=== PATIENT | female | born 1965 | race Caucasian/White ===

== ENCOUNTER 2022-11-24 18:40 | Inpatient (IN) | payer BC, MEDICARE ==
[~2022-11-24] VITALS: Ht 170.2 cm; Wt 65.9 kg
[2022-11-25 03:34] LABS: RED CELL DISTRIBUTION WIDTH 12.9 % (11.5-14.5)
[2022-11-25 03:36] LABS: BASOPHILS % (AUTO) 0.9 % (0-1); EOSINOPHILS % (AUTO) 0 % (0-6); HEMATOCRIT 39.3 % (35.0-45.0); HEMOGLOBIN 13.3 g/dl (12.0-16.0); LYMPHOCYTES # (AUTO) 0.9 X10'3 (1.1-4.8); LYMPHOCYTES % (AUTO) 17.5 % (21-51); MEAN CORPUSCULAR HEMOGLOBIN 27.7 PG (27.0-31.0); MEAN CORPUSCULAR HGB CONC 33.8 g/dL (33.0-36.5); MEAN PLATELET VOLUME 7.8 FL (7.4-10.4); MONOCYTES # (AUTO) 0.7 X10'3 (0-0.9); MONOCYTES % (AUTO) 12.4 % (2-12); NEUTROPHILS # (AUTO) 3.7 X10'3 (1.8-7.7); NEUTROPHILS % (AUTO) 69.2 % (42-75); PLATELET COUNT 276 X10'3 (140-440); RED BLOOD COUNT 4.79 X10'6 (4.20-5.60); WHITE BLOOD COUNT 5.4 X10'3 (4.5-11.0)
[2022-11-25 03:41] LABS: COLOR,URINE YELLOW (Yellow); GLUCOSE, URINE NEGATIVE (Neg); KETONES,URINE >=80 mg/dl (Neg); LEUKOCYTE ESTERASE ,URINE NEGATIVE (Neg); NITRITES, URINE NEGATIVE (Neg); OCCULT BLOOD,URINE NEGATIVE (Neg); PROTEIN,URINE TRACE mg/dl (Neg)
[2022-11-25 03:43] LABS: UA COLLECTION TYPE URINAL
[2022-11-25 03:46] LABS: ALANINE AMINOTRANSFERASE 13 U/L (12-78); ALBUMIN 2.9 G/DL (3.4-5.0); ALBUMIN/GLOBULIN RATIO 0.7 (1.1-1.5); ALKALINE PHOSPHATASE 93 IU/L (46-116); ANION GAP 14 (8-16); BILIRUBIN,TOTAL 0.6 MG/DL (0.1-1.0); BLOOD UREA NITROGEN 16 MG/DL (7-18); BUN/CREATININE RATIO 30.8 (10.0-20.0); CALCIUM 8.8 MG/DL (8.5-10.1); CHLORIDE 99 MMOL/L (99-107); CREATININE 0.52 MG/DL (0.40-0.90); GLUCOSE 81 MG/DL (70-104); SODIUM 135 MMOL/L (135-145); TOTAL CARBON DIOXIDE 22.2 MMOL/L (24-32); TOTAL PROTEIN 7.2 G/DL (6.4-8.2); eGFR > 90 ML/MIN
[2022-11-25] MEDS ORDERED: normal saline 1000ml 1,000 ML IV ONE ×2 (03:50)
[2022-11-25 03:52] LABS: BACTERIA,URINE FEW /HPF (Neg); RBC,URINE 0-2 /HPF (0-2)
[2022-11-25 03:53] LABS: CLARITY,URINE SLIGHTLY CLOUDY (Clear); MUCUS STRANDS FEW /LPF (Neg); SQUAMOUS EPITHELIAL CELL,UR MANY /LPF (FEW); TRANSITIONAL EPI CELLS,URINE FEW /HPF
[2022-11-25 04:00] LABS: URINE AMPHETAMINE SCREEN NEGATIVE (Neg); URINE BARBITUATE SCREEN NEGATIVE (Neg); URINE BENZODIAZEPINES SCREEN NEGATIVE (Neg); URINE CANNABINOID SCREEN NEGATIVE (Neg); URINE COCAINE SCREEN NEGATIVE (Neg); URINE METHADONE SCREEN NEGATIVE (Neg); URINE OPIATE SCREEN NEGATIVE (Neg); URINE PHENCYCLIDINE SCREEN NEGATIVE (Neg)
[2022-11-25 04:00] LABS: ASPARTATE AMINO TRANSFERASE 19 U/L (10-37); POTASSIUM 4.1 MMOL/L (3.5-5.1)
[2022-11-25] MEDS ORDERED: azithromycin/NS 500mg/250ml 250 ML IV ONE (04:50)
[2022-11-25] MEDS ORDERED: CefTRIAXone/D5W-Rocephin 1gm 50 ML IV ONE (04:50)
[2022-11-25] MEDS ORDERED: baclofen 10mg tablet PO STA (05:09)
[2022-11-25] MEDS ORDERED: magnesium hydroxide 30ml (MOM) UD suspension PO PRN (05:40)
[2022-11-25] MEDS ORDERED: magnesium 4gm in 100ml NS 100 ML IV PRN (05:40)
[2022-11-25] MEDS ORDERED: potassium Cl 20 mEq SR tablet PO PRN (05:40)
[2022-11-25] MEDS ORDERED: mag hydrox/Alum hydrox/simeth 30ml oral suspension PO PRN (05:40)
[2022-11-25] MEDS ORDERED: potassium Cl 40MEQ/1/2NS 520ml 520 ML IV PRN (05:40)
[2022-11-25] MEDS ORDERED: ondansetron/PF 4mg/2ml inj IV PRN (05:40)
[2022-11-25] MEDS ORDERED: magnesium Cl slow-release 64mg tablet PO PRN (05:40)
[2022-11-25] MEDS ORDERED: magnesium 2GM in 50ml NS 50 ML IV PRN (05:40)
--- NOTE | 2022-11-25 07:00 | NUR ---
REPOSITIONED PT ONTO HER RIGHT SIDE
[2022-11-25] MEDS: K and/or MAG REPLACEMENT MC SCH ×2 (08:00→19:59)
--- NOTE | 2022-11-25 08:19 | NUR ---
ASSISTED PT ONTO A BED AGUILAR
[2022-11-25] MEDS: normal saline 1000ml 1,000 ML IV SCH ×2 (08:20→17:52)
[2022-11-25] MEDS: docusate sod 100mg capsule PO SCH ×2 (08:20→20:00)
[2022-11-25] MEDS: heparin, porcine 5000 units/ml vial SQ SCH ×2 (08:21→20:10)
[2022-11-25] MEDS: azithromycin/NS 500mg/250ml 250 ML IV SCH (10:30)
--- NOTE | 2022-11-25 10:37 | NUR ---
PT REPOSITIONED ONTO HER BACK
[2022-11-25] MEDS ORDERED: DALF10TA3 PO (12:53)
[2022-11-25] MEDS ORDERED: TIZA-189 PO (12:53)
[2022-11-25] MEDS ORDERED: IPRA3AMP31 NEB (12:53)
[2022-11-25] MEDS ORDERED: BACL20TA PO (12:53)
[2022-11-25] MEDS ORDERED: [UNRECOGNIZED DRUG - CODE] PO (12:53)
--- NOTE | 2022-11-25 16:12 | NUR ---
Patient in room ED 15. I have received report from Harshal ARMENTA from ER and had the opportunity to ask questions and assume patient care.
[2022-11-25 18:00] VITALS: BP 135/61
--- NOTE | 2022-11-25 18:07 | NUR ---
Problems reprioritized. Patient report given, questions answered & plan of care reviewed with Nadia ARMENTA.
--- NOTE | 2022-11-25 18:20 | NUR ---
Patient in room ORTHO 4023. I have received report from KATHI Lawton and had the opportunity to ask questions and assume patient care.
[2022-11-25] MEDS: acetaminophen 325mg tablet PO PRN (20:15)
[2022-11-25] MEDS: baclofen 10mg tablet PO PRN (20:19)
[2022-11-26 02:00] VITALS: BP 108/52
[2022-11-26] MEDS: normal saline 1000ml 1,000 ML IV SCH ×2 (03:11→15:42)
[2022-11-26] MEDS: CefTRIAXone/D5W-Rocephin 1gm 50 ML IV SCH (05:11)
[2022-11-26 06:00] VITALS: BP 152/71
--- NOTE | 2022-11-26 06:30 | NUR ---
Patient in room ORTHO 4023. I have received report from Nadia ARMENTA and had the opportunity to ask questions and assume patient care.
--- NOTE | 2022-11-26 06:33 | NUR ---
Problems reprioritized. Patient report given, questions answered & plan of care reviewed with DEMETRIUS Lawton.
[2022-11-26 07:52] LABS: ALANINE AMINOTRANSFERASE 11 U/L (12-78); ALBUMIN 2.2 G/DL (3.4-5.0); ALBUMIN/GLOBULIN RATIO 0.6 (1.1-1.5); ALKALINE PHOSPHATASE 70 IU/L (46-116); ANION GAP 8 (8-16); ASPARTATE AMINO TRANSFERASE 19 U/L (10-37); BILIRUBIN,TOTAL 0.2 MG/DL (0.1-1.0); BLOOD UREA NITROGEN 8 MG/DL (7-18); BUN/CREATININE RATIO 12.9 (10.0-20.0); CALCIUM 7.8 MG/DL (8.5-10.1); CHLORIDE 106 MMOL/L (99-107); CREATININE 0.62 MG/DL (0.40-0.90); GLUCOSE 109 MG/DL (70-104); POTASSIUM 3.5 MMOL/L (3.5-5.1); SODIUM 139 MMOL/L (135-145); TOTAL CARBON DIOXIDE 24.8 MMOL/L (24-32); TOTAL PROTEIN 5.9 G/DL (6.4-8.2); eGFR > 90 ML/MIN
[2022-11-26] MEDS: docusate sod 100mg capsule PO SCH ×2 (08:00→20:00)
[2022-11-26] MEDS: K and/or MAG REPLACEMENT MC SCH ×2 (08:00→20:00)
[2022-11-26] MEDS: azithromycin/NS 500mg/250ml 250 ML IV SCH (08:20)
[2022-11-26 09:09] LABS: BASOPHILS % (AUTO) 0.4 % (0-1); EOSINOPHILS % (AUTO) 0.1 % (0-6); HEMATOCRIT 36.4 % (35.0-45.0); HEMOGLOBIN 12.2 g/dl (12.0-16.0); LYMPHOCYTES # (AUTO) 0.8 X10'3 (1.1-4.8); LYMPHOCYTES % (AUTO) 16.2 % (21-51); MEAN CORPUSCULAR HEMOGLOBIN 27.4 PG (27.0-31.0); MEAN CORPUSCULAR HGB CONC 33.6 g/dL (33.0-36.5); MEAN CORPUSCULAR VOLUME 81.7 FL (78-98); MEAN PLATELET VOLUME 8.2 FL (7.4-10.4); MONOCYTES # (AUTO) 0.7 X10'3 (0-0.9); MONOCYTES % (AUTO) 13.7 % (2-12); NEUTROPHILS # (AUTO) 3.5 X10'3 (1.8-7.7); NEUTROPHILS % (AUTO) 69.6 % (42-75); PLATELET COUNT 249 X10'3 (140-440); RED BLOOD COUNT 4.45 X10'6 (4.20-5.60); WHITE BLOOD COUNT 5.1 X10'3 (4.5-11.0)
[2022-11-26] MEDS: baclofen 10mg tablet PO PRN ×2 (09:13→20:15)
[2022-11-26] MEDS: heparin, porcine 5000 units/ml vial SQ SCH ×2 (09:15→20:15)
[2022-11-26 10:00] VITALS: BP 121/58
[2022-11-26] MEDS ORDERED: non-formulary drug (Baclofen 1 TAB) PO SCH (13:00)
[2022-11-26 14:00] VITALS: BP 134/58
--- NOTE | 2022-11-26 15:20 | NUR ---
BURRING MACHINE OPERATOR documentation: I have reviewed and agree with all interventions, assessments performed and documented by Patt Pena LVN.
[2022-11-26] MEDS: acetaminophen 325mg tablet PO PRN (16:55)
[2022-11-26 18:00] VITALS: BP 146/66
--- NOTE | 2022-11-26 18:00 | NUR ---
Patient in room ORTHO 4023. I have received report from KATHI Lawton and had the opportunity to ask questions and assume patient care.
--- NOTE | 2022-11-26 18:02 | NUR ---
Problems reprioritized. Patient report given, questions answered & plan of care reviewed with Nadia ARMENTA.
[2022-11-26] MEDS: ipratropium/albuterol 3ml nebule NEB SCH (19:30)
[2022-11-26] MEDS: DALFAMPRIDINE PO SCH (20:00)
[2022-11-26] MEDS ORDERED: tizanidine 4mg tablet PO SCH (21:00)
[2022-11-26 22:00] VITALS: BP 103/57
[2022-11-27] MEDS: acetaminophen 325mg tablet PO PRN ×2 (00:51→16:58)
[2022-11-27] MEDS: normal saline 1000ml 1,000 ML IV SCH ×3 (00:54→11:53)
[2022-11-27 02:00] VITALS: BP 127/67
[2022-11-27] MEDS: CefTRIAXone/D5W-Rocephin 1gm 50 ML IV SCH (04:58)
[2022-11-27 06:00] VITALS: BP 101/61
--- NOTE | 2022-11-27 06:34 | NUR ---
Problems reprioritized. Patient report given, questions answered & plan of care reviewed with KATHI Pinto.
[2022-11-27 06:56] LABS: ALANINE AMINOTRANSFERASE 12 U/L (12-78); ALBUMIN/GLOBULIN RATIO 0.6 (1.1-1.5); ALKALINE PHOSPHATASE 65 IU/L (46-116); ANION GAP 8 (8-16); ASPARTATE AMINO TRANSFERASE 22 U/L (10-37); BILIRUBIN,TOTAL 0.3 MG/DL (0.1-1.0); BLOOD UREA NITROGEN 5 MG/DL (7-18); BUN/CREATININE RATIO 9.8 (10.0-20.0); CALCIUM 7.7 MG/DL (8.5-10.1); CHLORIDE 109 MMOL/L (99-107); CREATININE 0.51 MG/DL (0.40-0.90); GLUCOSE 98 MG/DL (70-104); POTASSIUM 3.2 MMOL/L (3.5-5.1); SODIUM 144 MMOL/L (135-145); TOTAL CARBON DIOXIDE 26.6 MMOL/L (24-32); TOTAL PROTEIN 5.4 G/DL (6.4-8.2); eGFR > 90 ML/MIN
[2022-11-27 07:02] LABS: BASOPHILS % (AUTO) 0.4 % (0-1); EOSINOPHILS % (AUTO) 0.1 % (0-6); HEMATOCRIT 32.4 % (35.0-45.0); HEMOGLOBIN 10.6 g/dl (12.0-16.0); LYMPHOCYTES # (AUTO) 0.9 X10'3 (1.1-4.8); LYMPHOCYTES % (AUTO) 19.3 % (21-51); MEAN CORPUSCULAR HEMOGLOBIN 26.8 PG (27.0-31.0); MEAN CORPUSCULAR HGB CONC 32.8 g/dL (33.0-36.5); MEAN CORPUSCULAR VOLUME 81.8 FL (78-98); MEAN PLATELET VOLUME 8.1 FL (7.4-10.4); MONOCYTES # (AUTO) 0.5 X10'3 (0-0.9); MONOCYTES % (AUTO) 11.9 % (2-12); NEUTROPHILS % (AUTO) 68.3 % (42-75); PLATELET COUNT 245 X10'3 (140-440); RED BLOOD COUNT 3.96 X10'6 (4.20-5.60); RED CELL DISTRIBUTION WIDTH 12.8 % (11.5-14.5); WHITE BLOOD COUNT 4.4 X10'3 (4.5-11.0)
[2022-11-27] MEDS: azithromycin/NS 500mg/250ml 250 ML IV SCH (07:42)
[2022-11-27] MEDS: heparin, porcine 5000 units/ml vial SQ SCH (07:43)
[2022-11-27] MEDS: docusate sod 100mg capsule PO SCH ×4 (07:43→20:00)
[2022-11-27] MEDS: DALFAMPRIDINE PO SCH ×2 (07:44→20:00)
[2022-11-27] MEDS: baclofen 10mg tablet PO PRN ×2 (07:52→20:45)
[2022-11-27] MEDS: K and/or MAG REPLACEMENT MC SCH ×2 (08:00→20:00)
[2022-11-27] MEDS: ipratropium/albuterol 3ml nebule NEB SCH ×2 (08:28→20:01)
[2022-11-27 10:00] VITALS: BP 122/70
[2022-11-27] MEDS: potassium Cl 20 mEq SR tablet PO PRN ×3 (11:05→21:29)
[2022-11-27 14:05] LABS: D-DIMER 1.28 MG/L FEU (0-0.50)
[2022-11-27] MEDS ORDERED: iohexol 300mg/ml 100ml inj. ONE (14:26)
--- NOTE | 2022-11-27 14:54 | NUR ---
Received page from RN stating pt would like to talk to RD for food preferences. Noted pt originally on a heart healthy diet and eating poorly, documented with average 23% PO intake since admit. Pt seen at bedside with SO present. Food preferences were obtained and d/w dietary, see below. Pt states SO doordashed food for lunch and pt also received an additional lunch tray d/t not liking initial meal. Pt provided with RD contact information and encouraged to reach out if needed. Will continue to follow. Recommendations: 1) Continue regular diet 2) [place] food preferences: cottage cheese with fruit WB; no hot cereal, hot tea, coffee, eggs to eat, seafood, green beans, or melons; pt prefers whole milk with cereal, juice, iced tea with sugar, lemonade Addendum: 11/27/22 at [address] Amended: Links added.
[2022-11-27] MEDS: atenolol 25mg tablet PO SCH (17:48)
[2022-11-27 18:00] VITALS: BP 141/68
[2022-11-27 19:00] VITALS: BP 111/52
--- NOTE | 2022-11-27 19:44 | NUR ---
Notified night re: patient having low blood sugar. stated to drop patient off protocol and continue blood sugar checks to monitor - begin protocol again after 2 consecutive glucose over 160 or 1 over 200. Addendum: 11/27/22 at 2000 by Naomi Bonilla RN please disregard - wrong patient
[2022-11-27] MEDS ORDERED: tizanidine 4mg tablet PO PRN (20:40)
--- NOTE | 2022-11-27 21:11 | NUR ---
repositioned patient and all needs in reach. replaced wick and [place]. Patient refused Colace and Tizanadine. Home meds not available. Only administered Baclofen and Potassium replacement.
[2022-11-27 22:00] VITALS: BP 115/48
[2022-11-28] MEDS: heparin, porcine 5000 units/ml vial SQ SCH ×3 (00:18→16:31)
[2022-11-28] MEDS: normal saline 1000ml 1,000 ML IV SCH (00:20)
--- NOTE | 2022-11-28 01:45 | NUR ---
Student documentation: I have reviewed and agree with all interventions, assessments performed and documented by TRAVIS Bennett student.
[2022-11-28 02:00] VITALS: BP_SYST 119; BP_SYST 137; BP_DIAS 62
[2022-11-28] MEDS: acetaminophen 325mg tablet PO PRN ×2 (02:41→19:38)
[2022-11-28] MEDS: CefTRIAXone/D5W-Rocephin 1gm 50 ML IV SCH (05:10)
[2022-11-28 06:00] VITALS: BP 102/48
[2022-11-28 07:14] LABS: BASOPHILS % (AUTO) 0.3 % (0-1); EOSINOPHILS % (AUTO) 0 % (0-6); HEMATOCRIT 31.8 % (35.0-45.0); HEMOGLOBIN 10.7 g/dl (12.0-16.0); LYMPHOCYTES # (AUTO) 0.9 X10'3 (1.1-4.8); LYMPHOCYTES % (AUTO) 19.9 % (21-51); MEAN CORPUSCULAR HEMOGLOBIN 27.7 PG (27.0-31.0); MEAN CORPUSCULAR HGB CONC 33.6 g/dL (33.0-36.5); MEAN CORPUSCULAR VOLUME 82.4 FL (78-98); MEAN PLATELET VOLUME 7.6 FL (7.4-10.4); MONOCYTES # (AUTO) 0.5 X10'3 (0-0.9); NEUTROPHILS % (AUTO) 67.8 % (42-75); PLATELET COUNT 251 X10'3 (140-440); RED BLOOD COUNT 3.86 X10'6 (4.20-5.60); RED CELL DISTRIBUTION WIDTH 12.9 % (11.5-14.5); WHITE BLOOD COUNT 4.5 X10'3 (4.5-11.0)
[2022-11-28 07:26] LABS: ALANINE AMINOTRANSFERASE 13 U/L (12-78); ALBUMIN 1.9 G/DL (3.4-5.0); ALBUMIN/GLOBULIN RATIO 0.5 (1.1-1.5); ALKALINE PHOSPHATASE 73 IU/L (46-116); ANION GAP 9 (8-16); ASPARTATE AMINO TRANSFERASE 22 U/L (10-37); BILIRUBIN,TOTAL 0.3 MG/DL (0.1-1.0); BLOOD UREA NITROGEN 5 MG/DL (7-18); BUN/CREATININE RATIO 9.8 (10.0-20.0); CALCIUM 8.1 MG/DL (8.5-10.1); CHLORIDE 109 MMOL/L (99-107); CREATININE 0.51 MG/DL (0.40-0.90); GLUCOSE 97 MG/DL (70-104); POTASSIUM 4.1 MMOL/L (3.5-5.1); SODIUM 143 MMOL/L (135-145); TOTAL CARBON DIOXIDE 24.8 MMOL/L (24-32); TOTAL PROTEIN 5.4 G/DL (6.4-8.2); eGFR > 90 ML/MIN
[2022-11-28] MEDS: DALFAMPRIDINE PO SCH ×2 (08:00→19:45)
[2022-11-28] MEDS: K and/or MAG REPLACEMENT MC SCH ×2 (08:00→20:00)
[2022-11-28] MEDS: docusate sod 100mg capsule PO SCH ×2 (08:00→19:36)
[2022-11-28] MEDS: ipratropium/albuterol 3ml nebule NEB SCH ×2 (08:18→20:12)
[2022-11-28 09:39] LABS: C-REACTIVE PROTEIN 10.53 MG/DL (0.0-0.5)
[2022-11-28] MEDS: azithromycin/NS 500mg/250ml 250 ML IV SCH (10:15)
[2022-11-28] MEDS: atenolol 25mg tablet PO SCH (10:23)
[2022-11-28 10:28] VITALS: BP 119/58
[2022-11-28] MEDS ORDERED: iohexol 350MG/ML 100ml bottle IV ONE (10:46)
--- NOTE | 2022-11-28 10:58 | NUR ---
Patient to CT
[2022-11-28] MEDS: baclofen 10mg tablet PO PRN (16:41)
[2022-11-28 18:00] VITALS: BP 134/69
--- NOTE | 2022-11-28 18:06 | NUR ---
Problems reprioritized. Patient report given, questions answered & plan of care reviewed with Naomi Mendenhall RN.
[2022-11-28 22:00] VITALS: BP 97/52
[2022-11-29] MEDS: heparin, porcine 5000 units/ml vial SQ SCH ×3 (00:34→16:52)
--- NOTE | 2022-11-29 00:39 | NUR ---
Student documentation: I have reviewed and agree with all interventions, assessments performed and documented by TRAVIS Bennett student.
[2022-11-29] MEDS: normal saline 1000ml 1,000 ML IV SCH (01:37)
[2022-11-29] MEDS: acetaminophen 325mg tablet PO PRN (02:13)
[2022-11-29 04:14] LABS: BASOPHILS # (AUTO) 0.1 X10'3 (0-0.2); EOSINOPHILS % (AUTO) 0.1 % (0-6); HEMOGLOBIN 10.1 g/dl (12.0-16.0); MEAN PLATELET VOLUME 8.1 FL (7.4-10.4); RED BLOOD COUNT 3.69 X10'6 (4.20-5.60); RED CELL DISTRIBUTION WIDTH 12.7 % (11.5-14.5); WHITE BLOOD COUNT 5.3 X10'3 (4.5-11.0)
[2022-11-29 04:15] LABS: ALANINE AMINOTRANSFERASE 13 U/L (12-78); ALBUMIN 1.9 G/DL (3.4-5.0); ALBUMIN/GLOBULIN RATIO 0.5 (1.1-1.5); ALKALINE PHOSPHATASE 84 IU/L (46-116); ANION GAP 8 (8-16); ASPARTATE AMINO TRANSFERASE 24 U/L (10-37); BASOPHILS % (AUTO) 1.4 % (0-1); BILIRUBIN,TOTAL 0.3 MG/DL (0.1-1.0); BLOOD UREA NITROGEN 6 MG/DL (7-18); CHLORIDE 104 MMOL/L (99-107); GLUCOSE 104 MG/DL (70-104); LYMPHOCYTES # (AUTO) 0.6 X10'3 (1.1-4.8); LYMPHOCYTES % (AUTO) 11.9 % (21-51); MEAN CORPUSCULAR HEMOGLOBIN 27.4 PG (27.0-31.0); MEAN CORPUSCULAR HGB CONC 33.6 g/dL (33.0-36.5); MEAN CORPUSCULAR VOLUME 81.3 FL (78-98); MONOCYTES # (AUTO) 0.6 X10'3 (0-0.9); MONOCYTES % (AUTO) 11.8 % (2-12); NEUTROPHILS # (AUTO) 3.9 X10'3 (1.8-7.7); NEUTROPHILS % (AUTO) 74.8 % (42-75); PLATELET COUNT 257 X10'3 (140-440); POTASSIUM 3.7 MMOL/L (3.5-5.1); SODIUM 137 MMOL/L (135-145); TOTAL CARBON DIOXIDE 24.8 MMOL/L (24-32); TOTAL PROTEIN 5.5 G/DL (6.4-8.2); eGFR > 90 ML/MIN
[2022-11-29] MEDS: CefTRIAXone/D5W-Rocephin 1gm 50 ML IV SCH (05:04)
--- NOTE | 2022-11-29 06:15 | NUR ---
Patient in room ORTHO 4023. I have received report from Naomi Mendenhall and ABEBA and had the opportunity to ask questions and assume patient care.
[2022-11-29 07:02] VITALS: BP 110/42
[2022-11-29] MEDS: K and/or MAG REPLACEMENT MC SCH ×2 (08:00→20:00)
[2022-11-29] MEDS: docusate sod 100mg capsule PO SCH ×2 (08:00→20:00)
[2022-11-29] MEDS: ipratropium/albuterol 3ml nebule NEB SCH ×2 (09:16→20:22)
[2022-11-29] MEDS: azithromycin/NS 500mg/250ml 250 ML IV SCH (09:21)
[2022-11-29] MEDS: atenolol 25mg tablet PO SCH (09:35)
[2022-11-29] MEDS: baclofen 10mg tablet PO PRN (09:36)
[2022-11-29 10:00] VITALS: BP 111/50
[2022-11-29] MEDS ORDERED: furosemide 20 MG/2 ML vial IV ONE ×2 (10:40→11:00)
--- NOTE | 2022-11-29 13:30 | NUR ---
Put patient back to bed, changed wick, changed bed and bed bath given.
[2022-11-29 14:06] LABS: HIV ANTIBODY 1&2 RAPID NON-REACTIVE (Neg)
--- NOTE | 2022-11-29 14:46 | NUR ---
magan from [place], [place] by Dr. Carmona, fed patient Addendum: 11/29/22 at 1446 by Eve Treviño RN Amended: Links added.
[2022-11-29] MEDS: piperacillin/tazo 4.5gm/100ml 100 ML IV SCH (16:52)
--- NOTE | 2022-11-29 17:13 | NUR ---
Patient stated she tested positive MID October, to late October.
--- NOTE | 2022-11-29 17:34 | NUR ---
Bladder scanned patient with 1022mls in will notify
--- NOTE | 2022-11-29 17:38 | NUR ---
PAGER ID: [phone] MESSAGE: [id number] Allie Grant Patients can't pee, I am going to give her next dose of baclofen. Do you want me to straight cath her? 1022ml in bladder Eve [id number]
[2022-11-29 18:00] VITALS: BP 142/67
--- NOTE | 2022-11-29 18:12 | NUR ---
Straight cath result. Addendum: 11/29/22 at 1813 by Eve Treviño RN Amended: Links added.
--- NOTE | 2022-11-29 18:26 | NUR ---
Problems reprioritized. Patient report given, questions answered & plan of care reviewed with REGISTERED VETERINARY TECHNICIAN.
[2022-11-29] MEDS: DALFAMPRIDINE PO SCH (20:00)
[2022-11-29 22:00] VITALS: BP 105/50
[2022-11-30] VITALS (10 sets, daily range): BP systolic 85–126; BP diastolic 41–80
[2022-11-30] MEDS: heparin, porcine 5000 units/ml vial SQ SCH ×4 (00:24→23:45)
[2022-11-30] MEDS: piperacillin/tazo 4.5gm/100ml 100 ML IV SCH ×4 (00:25→23:44)
[2022-11-30] MEDS: baclofen 10mg tablet PO PRN ×2 (00:25→19:58)
[2022-11-30 06:42] LABS: HEMOGLOBIN 11.9 g/dl (12.0-16.0)
[2022-11-30 06:44] LABS: HEMATOCRIT 35.6 % (35.0-45.0); MEAN CORPUSCULAR HEMOGLOBIN 27.5 PG (27.0-31.0); MEAN CORPUSCULAR HGB CONC 33.3 g/dL (33.0-36.5); MEAN CORPUSCULAR VOLUME 82.5 FL (78-98); MEAN PLATELET VOLUME 8.3 FL (7.4-10.4); PLATELET COUNT 265 X10'3 (140-440); RED BLOOD COUNT 4.32 X10'6 (4.20-5.60); RED CELL DISTRIBUTION WIDTH 13.1 % (11.5-14.5)
[2022-11-30 06:57] LABS: ALANINE AMINOTRANSFERASE 19 U/L (12-78); ALBUMIN 1.9 G/DL (3.4-5.0); ALBUMIN/GLOBULIN RATIO 0.4 (1.1-1.5); ALKALINE PHOSPHATASE 92 IU/L (46-116); ANION GAP 9 (8-16); ASPARTATE AMINO TRANSFERASE 33 U/L (10-37); BILIRUBIN,TOTAL 0.5 MG/DL (0.1-1.0); BLOOD UREA NITROGEN 9 MG/DL (7-18); BUN/CREATININE RATIO 18.4 (10.0-20.0); CALCIUM 8.5 MG/DL (8.5-10.1); CHLORIDE 102 MMOL/L (99-107); CREATININE 0.49 MG/DL (0.40-0.90); GLUCOSE 97 MG/DL (70-104); SODIUM 136 MMOL/L (135-145); TOTAL CARBON DIOXIDE 25.2 MMOL/L (24-32); TOTAL PROTEIN 6.3 G/DL (6.4-8.2); eGFR > 90 ML/MIN
[2022-11-30 07:15] LABS: LARGE PLATELETS FEW; PLATELET ESTIMATE NORMAL; TOTAL CELLS COUNTED 100
[2022-11-30] MEDS: atenolol 25mg tablet PO SCH (07:30)
[2022-11-30] MEDS: docusate sod 100mg capsule PO SCH ×2 (07:30→19:58)
[2022-11-30] MEDS: ipratropium/albuterol 3ml nebule NEB SCH ×2 (07:54→15:20)
[2022-11-30] MEDS: K and/or MAG REPLACEMENT MC SCH ×2 (08:00→19:56)
[2022-11-30] MEDS: DALFAMPRIDINE PO SCH ×2 (08:00→19:59)
--- NOTE | 2022-11-30 11:03 | NUR ---
Initial: Pt admit DX bilateral community-acquired PNA, MS, and immunocompromise from MS treatment per EMR. PO fluctuates regular diet ~50% avg recent meals though pt having bring foods from cafe and doordashing food this admit so difficult to assess nutrition intake. Overall likely partially meeting needs w/ current PO documentation; will send lizz VAUGHAN-dietary notified. LBM 11/29 receiving routine colace though refused this AM per EMR. Will continue to follow. Recommendations: 1) Continue regular diet; encourage PO. Pt having food brought from outside sources 2) [place] food preferences: cottage cheese with fruit WB; no hot cereal, hot tea, coffee, eggs to eat, seafood, green beans, or melons; pt prefers whole milk with cereal, juice, iced tea with sugar, lemonade 3) Lizz WS to assist meeting needs 4) Routine bowel care 5) scaled wt this admit; subsequent weekly wt Addendum: 11/30/22 at [address] Amended: Links added.
[2022-11-30] MEDS ORDERED: furosemide 20 MG/2 ML vial IV ONE (11:55)
[2022-11-30 12:20] LABS: IMMUNOGLOBULIN G, QN, SERUM 592 mg/dL (586-1602)
--- NOTE | 2022-11-30 13:30 | NUR ---
PRESSURE ULCER EDUCATION: DEFINITION: A pressure ulcer is an area of skin that breaks down when you stay in one position too long. The constant pressure against the skin reduces the blood flow to that area and the affected tissue dies. CAUSES: "Being bedridden or in a wheelchair "Fragile skin "Having a chronic condition, such as diabetes or vascular disease "Inability to move certain parts of your body without assistance "Older age "Incontinence of urine or stool SYMPTOMS: "A reddened area that DOES NOT turn white when pressed on - this can be the beginning of a pressure ulcer "A blister, deep sore or a crater - these can be advanced pressure ulcers FIRST AID: "Relieve the pressure on this area "Keep the area clean and dry "Call your primary doctor if you see any of the above symptoms "DO NOT massage the area "DO NOT use a donut shaped or ring shaped pillow- these actually interfere with the blood flow and cause complications PREVENTION: "Check for pressure ulcers everyday "Change position at least every two hours to relieve pressure "Use items that help relieve pressure- pillows, sheepskin, foam padding, and powders. "Keep skin clean and dry "Eat healthy well balanced meals "Exercise daily IF YOU SEE ANY OF THESE SYMPTOMS WHILE IN THE HOSPITAL - TELL YOUR NURSE IMMEDIATELY. IF YOU SEE ANY OF THESE SYMPTOMS WHILE AT HOME OR HAVE ANY QUESTIONS OR CONCERNS ABOUT PRESSURE ULCERS - CALL YOUR PRIMARY DOCTOR IMMEDIATELY. Addendum: 11/30/22 at 1330 by Radhika Miles RN Amended: Links added.
[2022-11-30] MEDS: acetaminophen 325mg tablet PO PRN ×2 (14:23→23:56)
[2022-11-30] MEDS: ipratropium/albuterol 3ml nebule NEB PRN (19:58)
[2022-12-01] MEDS: baclofen 10mg tablet PO PRN ×2 (04:49→21:08)
[2022-12-01 06:00] VITALS: BP 110/57
[2022-12-01] MEDS: docusate sod 100mg capsule PO SCH (07:50)
[2022-12-01] MEDS: K and/or MAG REPLACEMENT MC SCH ×2 (08:00→20:00)
[2022-12-01] MEDS: DALFAMPRIDINE PO SCH ×2 (08:00→20:00)
[2022-12-01] MEDS: ipratropium/albuterol 3ml nebule NEB SCH ×2 (08:03→15:33)
[2022-12-01 09:28] LABS: BASOPHILS % (AUTO) 0.3 % (0-1); EOSINOPHILS % (AUTO) 0.1 % (0-6); HEMATOCRIT 38.7 % (35.0-45.0); HEMOGLOBIN 12.9 g/dl (12.0-16.0); LYMPHOCYTES % (AUTO) 15.1 % (21-51); MEAN CORPUSCULAR HEMOGLOBIN 27.4 PG (27.0-31.0); MEAN CORPUSCULAR HGB CONC 33.4 g/dL (33.0-36.5); MEAN CORPUSCULAR VOLUME 82.1 FL (78-98); MEAN PLATELET VOLUME 8.5 FL (7.4-10.4); MONOCYTES # (AUTO) 0.8 X10'3 (0-0.9); MONOCYTES % (AUTO) 12.6 % (2-12); NEUTROPHILS # (AUTO) 4.7 X10'3 (1.8-7.7); NEUTROPHILS % (AUTO) 71.9 % (42-75); PLATELET COUNT 299 X10'3 (140-440); RED BLOOD COUNT 4.71 X10'6 (4.20-5.60); RED CELL DISTRIBUTION WIDTH 13.1 % (11.5-14.5); WHITE BLOOD COUNT 6.6 X10'3 (4.5-11.0)
[2022-12-01 09:39] LABS: ALBUMIN 2.2 G/DL (3.4-5.0); ANION GAP 8 (8-16); BLOOD UREA NITROGEN 11 MG/DL (7-18); BUN/CREATININE RATIO 15.9 (10.0-20.0); CALCIUM 9.2 MG/DL (8.5-10.1); CHLORIDE 98 MMOL/L (99-107); CREATININE 0.69 MG/DL (0.40-0.90); GLUCOSE 126 MG/DL (70-104); POTASSIUM 3.7 MMOL/L (3.5-5.1); SODIUM 136 MMOL/L (135-145); TOTAL CARBON DIOXIDE 29.9 MMOL/L (24-32); eGFR 88 ML/MIN
[2022-12-01 10:00] VITALS: BP 115/48
[2022-12-01] MEDS: atenolol 25mg tablet PO SCH (10:17)
[2022-12-01] MEDS: heparin, porcine 5000 units/ml vial SQ SCH ×2 (10:18→17:34)
[2022-12-01] MEDS: piperacillin/tazo 4.5gm/100ml 100 ML IV SCH ×3 (10:20→17:45)
[2022-12-01] MEDS ORDERED: normal saline 1000ml 1,000 ML IV SCH (10:40)
[2022-12-01] MEDS: ipratropium/albuterol 3ml nebule NEB PRN ×2 (11:58→19:34)
[2022-12-01] MEDS: linezolid 600mg tablet PO SCH ×2 (17:35→20:57)
--- NOTE | 2022-12-01 20:00 | NUR ---
Pt. is awake alert laying on left side with head of bed flat, unable to clear oral secretions.Suctioned as needed invited pt. to learn self suctioning as needed with nicolette. C/o feeling hot, blankets removed cool pack given. Repositioned in bed to right back, water and meds given tolerated well. Checked sacral mepilex dressing no skin breakdown noted. 2200 Report to next shift.
[2022-12-01 21:53] LABS: CRYPTOCOCCUS ANTIGEN, SERUM Negative (Negative)
[2022-12-01 22:00] VITALS: BP 107/48
[2022-12-02] MEDS: heparin, porcine 5000 units/ml vial SQ SCH ×4 (00:02→23:53)
[2022-12-02] MEDS: piperacillin/tazo 4.5gm/100ml 100 ML IV SCH ×4 (00:03→23:53)
[2022-12-02 01:57] VITALS: BP 106/54
[2022-12-02 06:00] VITALS: BP 106/54
--- NOTE | 2022-12-02 06:28 | NUR ---
Patient in room ORTHO 4006. I have received report from kevin ARMENTA and had the opportunity to ask questions and assume patient care.
[2022-12-02] MEDS: ipratropium/albuterol 3ml nebule NEB SCH ×2 (07:44→20:10)
[2022-12-02] MEDS: atenolol 25mg tablet PO SCH (07:44)
[2022-12-02] MEDS: linezolid 600mg tablet PO SCH ×2 (07:45→19:51)
[2022-12-02] MEDS: DALFAMPRIDINE PO SCH ×2 (07:49→20:00)
[2022-12-02] MEDS: K and/or MAG REPLACEMENT MC SCH ×2 (08:00→20:00)
[2022-12-02 09:07] LABS: BASOPHILS % (AUTO) 0.5 % (0-1); EOSINOPHILS % (AUTO) 0.2 % (0-6); HEMATOCRIT 32.9 % (35.0-45.0); HEMOGLOBIN 11.1 g/dl (12.0-16.0); LYMPHOCYTES # (AUTO) 1.2 X10'3 (1.1-4.8); LYMPHOCYTES % (AUTO) 19.9 % (21-51); MEAN CORPUSCULAR HEMOGLOBIN 27.5 PG (27.0-31.0); MEAN CORPUSCULAR HGB CONC 33.8 g/dL (33.0-36.5); MEAN CORPUSCULAR VOLUME 81.3 FL (78-98); MEAN PLATELET VOLUME 8.7 FL (7.4-10.4); MONOCYTES % (AUTO) 16.8 % (2-12); NEUTROPHILS # (AUTO) 3.7 X10'3 (1.8-7.7); NEUTROPHILS % (AUTO) 62.6 % (42-75); PLATELET COUNT 267 X10'3 (140-440); RED BLOOD COUNT 4.05 X10'6 (4.20-5.60); RED CELL DISTRIBUTION WIDTH 13.1 % (11.5-14.5); WHITE BLOOD COUNT 5.9 X10'3 (4.5-11.0)
[2022-12-02 09:22] LABS: ALANINE AMINOTRANSFERASE 35 U/L (12-78); ALBUMIN/GLOBULIN RATIO 0.4 (1.1-1.5); ALKALINE PHOSPHATASE 91 IU/L (46-116); ANION GAP 8 (8-16); ASPARTATE AMINO TRANSFERASE 40 U/L (10-37); BILIRUBIN,TOTAL 0.4 MG/DL (0.1-1.0); BLOOD UREA NITROGEN 9 MG/DL (7-18); BUN/CREATININE RATIO 15.8 (10.0-20.0); CALCIUM 8.7 MG/DL (8.5-10.1); CHLORIDE 99 MMOL/L (99-107); CREATININE 0.57 MG/DL (0.40-0.90); GLUCOSE 102 MG/DL (70-104); POTASSIUM 3.7 MMOL/L (3.5-5.1); SODIUM 134 MMOL/L (135-145); TOTAL PROTEIN 6.5 G/DL (6.4-8.2); eGFR > 90 ML/MIN
[2022-12-02 09:33] LABS: TOTAL CELLS COUNTED 100
[2022-12-02 09:35] LABS: PLATELET ESTIMATE NORMAL
--- NOTE | 2022-12-02 09:58 | NUR ---
Zyvox Consult: Pt now started on zyvox and in COVID isolation per EMR. Per RN on airborne isolation for RSV w/ further tests pending; Zyvox ed deferred at this time. Addendum: 12/02/22 at [address] Amended: Links added.
[2022-12-02 10:00] VITALS: BP 100/44
[2022-12-02] MEDS: dexamethasone 4mg/ml inj IV SCH (10:28)
[2022-12-02] MEDS: ipratropium/albuterol 3ml nebule NEB PRN ×2 (11:17→14:51)
[2022-12-02 16:00] VITALS: BP 116/56
[2022-12-02] MEDS: baclofen 10mg tablet PO PRN ×2 (16:01→23:53)
--- NOTE | 2022-12-02 17:28 | NUR ---
patient up with mod assistance to chair and working with PT, see note. Had diarrhea x4. I.D aware. patient is to be tested for cdiff next sample. per dr crum. covid test done. Negative result obtained see serology. will continue to monitor. Afebrile this shift.
[2022-12-02 18:00] VITALS: BP 116/56
--- NOTE | 2022-12-02 18:25 | NUR ---
Problems reprioritized. Patient report given, questions answered & plan of care reviewed with Chacha ARMENTA.
[2022-12-02 22:00] VITALS: BP 115/60
[2022-12-03] VITALS (7 sets, daily range): BP systolic 96–125; BP diastolic 45–55
--- NOTE | 2022-12-03 06:40 | NUR ---
Problems reprioritized. Patient report given, questions answered & plan of care reviewed with Paul ARMENTA.
[2022-12-03] MEDS: K and/or MAG REPLACEMENT MC SCH ×2 (08:00→20:00)
[2022-12-03] MEDS: DALFAMPRIDINE PO SCH ×2 (08:00→20:00)
[2022-12-03] MEDS: piperacillin/tazo 4.5gm/100ml 100 ML IV SCH ×2 (08:00→09:17)
[2022-12-03] MEDS: ipratropium/albuterol 3ml nebule NEB SCH ×2 (08:15→19:45)
[2022-12-03] MEDS: heparin, porcine 5000 units/ml vial SQ SCH ×2 (09:18→16:32)
[2022-12-03] MEDS: dexamethasone 4mg/ml inj IV SCH (09:20)
[2022-12-03] MEDS: atenolol 25mg tablet PO SCH (09:21)
[2022-12-03] MEDS: linezolid 600mg tablet PO SCH ×2 (09:21→20:34)
[2022-12-03 09:47] LABS: C-REACTIVE PROTEIN 10.13 MG/DL (0.0-0.5)
[2022-12-03 09:58] LABS: ALANINE AMINOTRANSFERASE 44 U/L (12-78); ALBUMIN 2.1 G/DL (3.4-5.0); ALBUMIN/GLOBULIN RATIO 0.4 (1.1-1.5); ALKALINE PHOSPHATASE 94 IU/L (46-116); ANION GAP 11 (8-16); ASPARTATE AMINO TRANSFERASE 37 U/L (10-37); BILIRUBIN,TOTAL 0.3 MG/DL (0.1-1.0); BLOOD UREA NITROGEN 14 MG/DL (7-18); BUN/CREATININE RATIO 28.6 (10.0-20.0); CALCIUM 8.8 MG/DL (8.5-10.1); CHLORIDE 101 MMOL/L (99-107); CREATININE 0.49 MG/DL (0.40-0.90); GLUCOSE 94 MG/DL (70-104); POTASSIUM 3.9 MMOL/L (3.5-5.1); SODIUM 138 MMOL/L (135-145); TOTAL CARBON DIOXIDE 26.1 MMOL/L (24-32); TOTAL PROTEIN 6.8 G/DL (6.4-8.2); eGFR > 90 ML/MIN
[2022-12-03 10:04] LABS: LACTATE DEHYDROGENASE 324 U/L (81-234)
[2022-12-03 10:46] LABS: BASOPHILS % (AUTO) 0.1 % (0-1); EOSINOPHILS % (AUTO) 0.1 % (0-6); HEMATOCRIT 32.6 % (35.0-45.0); HEMOGLOBIN 11.1 g/dl (12.0-16.0); LYMPHOCYTES # (AUTO) 0.9 X10'3 (1.1-4.8); LYMPHOCYTES % (AUTO) 14.6 % (21-51); MEAN CORPUSCULAR HEMOGLOBIN 27.3 PG (27.0-31.0); MEAN CORPUSCULAR HGB CONC 34.2 g/dL (33.0-36.5); MEAN PLATELET VOLUME 8.8 FL (7.4-10.4); MONOCYTES % (AUTO) 17.4 % (2-12); NEUTROPHILS # (AUTO) 4.1 X10'3 (1.8-7.7); NEUTROPHILS % (AUTO) 67.8 % (42-75); PLATELET COUNT 338 X10'3 (140-440); RED BLOOD COUNT 4.08 X10'6 (4.20-5.60); RED CELL DISTRIBUTION WIDTH 12.8 % (11.5-14.5)
--- NOTE | 2022-12-03 15:25 | NUR ---
Pt got up to recliner two person assist. pt is currently on room air o2 saturation is 93%. will continue to monitor pt
[2022-12-03] MEDS: ipratropium/albuterol 3ml nebule NEB PRN (15:36)
[2022-12-03] MEDS: baclofen 10mg tablet PO PRN (16:31)
[2022-12-03 20:03] LABS: ABG BASE EXCESS -0.4 mmol/L (-2.0-2.0); ABG HCO3 22.2 mmol/L (22.0-26.0); ABG OXYGEN SATURATION 94.6 % (94-97); ABG PCO2 (T) 29.2 mmHg (32.0-45.0); ALLEN'S TEST POSITIVE; FCOHb 0.3 % (0.0-3.9); FMetHb 0.3 % (0.0-1.5); PATIENT TEMPERATURE 36.6; TOTAL HEMOGLOBIN 10.9 G/dl (12.0-16.0)
[2022-12-04] MEDS: piperacillin/tazo 4.5gm/100ml 100 ML IV SCH ×4 (00:03→23:53)
[2022-12-04] MEDS: heparin, porcine 5000 units/ml vial SQ SCH ×4 (00:04→23:53)
[2022-12-04 02:00] VITALS: BP 117/55
[2022-12-04] MEDS: baclofen 10mg tablet PO PRN ×3 (02:34→21:38)
[2022-12-04 05:00] VITALS: BP 123/64
[2022-12-04] MEDS: acetaminophen 325mg tablet PO PRN (05:08)
--- NOTE | 2022-12-04 06:28 | NUR ---
Problems reprioritized. Patient report given, questions answered & plan of care reviewed with Erin ARMENTA.
--- NOTE | 2022-12-04 06:29 | NUR ---
Patient in room ORTHO 4006. I have received report from Chacha and had the opportunity to ask questions and assume patient care.
[2022-12-04] MEDS: K and/or MAG REPLACEMENT MC SCH ×2 (06:46→20:00)
[2022-12-04] MEDS: dexamethasone 4mg/ml inj IV SCH (07:43)
[2022-12-04] MEDS: linezolid 600mg tablet PO SCH ×2 (07:43→20:49)
[2022-12-04] MEDS: atenolol 25mg tablet PO SCH (07:44)
[2022-12-04] MEDS: ipratropium/albuterol 3ml nebule NEB SCH ×2 (07:46→20:18)
[2022-12-04] MEDS: DALFAMPRIDINE PO SCH ×2 (08:00→20:00)
[2022-12-04 09:15] LABS: ALANINE AMINOTRANSFERASE 45 U/L (12-78); ALBUMIN 2.2 G/DL (3.4-5.0); ALBUMIN/GLOBULIN RATIO 0.5 (1.1-1.5); ALKALINE PHOSPHATASE 104 IU/L (46-116); ANION GAP 11 (8-16); ASPARTATE AMINO TRANSFERASE 37 U/L (10-37); BILIRUBIN,TOTAL 0.3 MG/DL (0.1-1.0); BLOOD UREA NITROGEN 18 MG/DL (7-18); BUN/CREATININE RATIO 22.2 (10.0-20.0); CHLORIDE 100 MMOL/L (99-107); CREATININE 0.81 MG/DL (0.40-0.90); GLUCOSE 99 MG/DL (70-104); POTASSIUM 3.2 MMOL/L (3.5-5.1); SODIUM 137 MMOL/L (135-145); TOTAL CARBON DIOXIDE 25.8 MMOL/L (24-32); TOTAL PROTEIN 6.7 G/DL (6.4-8.2); eGFR 73 ML/MIN
[2022-12-04 09:21] LABS: BASOPHILS % (AUTO) 0.3 % (0-1); EOSINOPHILS % (AUTO) 0.2 % (0-6); HEMATOCRIT 34.5 % (35.0-45.0); HEMOGLOBIN 11.4 g/dl (12.0-16.0); LYMPHOCYTES # (AUTO) 0.9 X10'3 (1.1-4.8); LYMPHOCYTES % (AUTO) 9.8 % (21-51); MEAN CORPUSCULAR HGB CONC 33.1 g/dL (33.0-36.5); MEAN CORPUSCULAR VOLUME 81.6 FL (78-98); MEAN PLATELET VOLUME 8.4 FL (7.4-10.4); MONOCYTES % (AUTO) 11.7 % (2-12); NEUTROPHILS # (AUTO) 6.8 X10'3 (1.8-7.7); PLATELET COUNT 370 X10'3 (140-440); RED BLOOD COUNT 4.23 X10'6 (4.20-5.60); RED CELL DISTRIBUTION WIDTH 12.8 % (11.5-14.5); WHITE BLOOD COUNT 8.7 X10'3 (4.5-11.0)
[2022-12-04 10:00] VITALS: BP 96/43
--- NOTE | 2022-12-04 12:27 | NUR ---
PAGER ID: [phone] MESSAGE: Allie Grant in [phone] - Potassium is 3.2. Do you want to reorder replacement protocol? -Erin [id number]
[2022-12-04] MEDS ORDERED: potassium Cl 40MEQ/1/2NS 520ml 520 ML IV PRN (12:45)
[2022-12-04] MEDS ORDERED: magnesium 4gm in 100ml NS 100 ML IV PRN (12:45)
[2022-12-04] MEDS ORDERED: potassium Cl 20 mEq SR tablet PO PRN (12:45)
[2022-12-04] MEDS ORDERED: magnesium 2GM in 50ml NS 50 ML IV PRN (12:45)
[2022-12-04] MEDS ORDERED: magnesium Cl slow-release 64mg tablet PO PRN (12:45)
[2022-12-04] MEDS ORDERED: POTASSIUM BICARB 20meq eff tab 20 MEQ TABLET.EFF PO PRN (12:45)
[2022-12-04] MEDS: potassium Cl 20 mEq SR tablet PO PRN ×3 (13:25→21:38)
[2022-12-04 18:00] VITALS: BP 104/57
--- NOTE | 2022-12-04 18:42 | NUR ---
Problems reprioritized. Patient report given, questions answered & plan of care reviewed with
--- NOTE | 2022-12-04 18:53 | NUR ---
Patient in room ORTHO 4006. I have received report from Erin ARMENTA and had the opportunity to ask questions and assume patient care.
[2022-12-04 22:00] VITALS: BP 113/54
[2022-12-05 01:38] VITALS: BP 107/54
--- NOTE | 2022-12-05 05:38 | NUR ---
Problems reprioritized. Patient report given, questions answered & plan of care reviewed with Patrick ROMO.
[2022-12-05 06:00] VITALS: BP 111/48
--- NOTE | 2022-12-05 06:14 | NUR ---
Patient in room ORTHO 4006. I have received report from KATHI Barber and had the opportunity to ask questions and assume patient care.
[2022-12-05] MEDS: dexamethasone 4mg/ml inj IV SCH (07:07)
[2022-12-05] MEDS: piperacillin/tazo 4.5gm/100ml 100 ML IV SCH ×2 (07:08→15:40)
[2022-12-05] MEDS: DALFAMPRIDINE PO SCH ×2 (07:35→20:00)
[2022-12-05] MEDS: heparin, porcine 5000 units/ml vial SQ SCH ×2 (07:45→16:44)
[2022-12-05] MEDS: atenolol 25mg tablet PO SCH (07:46)
[2022-12-05] MEDS: linezolid 600mg tablet PO SCH ×2 (07:58→19:24)
[2022-12-05] MEDS: K and/or MAG REPLACEMENT MC SCH ×2 (08:00→20:00)
[2022-12-05] MEDS: ipratropium/albuterol 3ml nebule NEB SCH ×2 (08:36→20:00)
[2022-12-05] MEDS: baclofen 10mg tablet PO PRN ×2 (08:50→19:24)
[2022-12-05 10:00] VITALS: BP 95/52
[2022-12-05 10:27] LABS: BASOPHILS % (AUTO) 0.3 % (0-1); EOSINOPHILS % (AUTO) 0.1 % (0-6); HEMATOCRIT 33.7 % (35.0-45.0); HEMOGLOBIN 10.9 g/dl (12.0-16.0); LYMPHOCYTES # (AUTO) 0.9 X10'3 (1.1-4.8); LYMPHOCYTES % (AUTO) 10.2 % (21-51); MEAN CORPUSCULAR HEMOGLOBIN 26.5 PG (27.0-31.0); MEAN CORPUSCULAR HGB CONC 32.3 g/dL (33.0-36.5); MEAN CORPUSCULAR VOLUME 82.2 FL (78-98); MEAN PLATELET VOLUME 8.2 FL (7.4-10.4); MONOCYTES # (AUTO) 1.2 X10'3 (0-0.9); MONOCYTES % (AUTO) 13.1 % (2-12); NEUTROPHILS % (AUTO) 76.3 % (42-75); PLATELET COUNT 415 X10'3 (140-440); RED CELL DISTRIBUTION WIDTH 13.2 % (11.5-14.5); WHITE BLOOD COUNT 9.2 X10'3 (4.5-11.0)
[2022-12-05 10:35] LABS: ALANINE AMINOTRANSFERASE 48 U/L (12-78); ALBUMIN 2.1 G/DL (3.4-5.0); ALBUMIN/GLOBULIN RATIO 0.5 (1.1-1.5); ALKALINE PHOSPHATASE 108 IU/L (46-116); ANION GAP 11 (8-16); ASPARTATE AMINO TRANSFERASE 39 U/L (10-37); BILIRUBIN,TOTAL 0.3 MG/DL (0.1-1.0); BLOOD UREA NITROGEN 13 MG/DL (7-18); CALCIUM 8.9 MG/DL (8.5-10.1); CHLORIDE 103 MMOL/L (99-107); CREATININE 0.65 MG/DL (0.40-0.90); GLUCOSE 123 MG/DL (70-104); POTASSIUM 4.1 MMOL/L (3.5-5.1); SODIUM 138 MMOL/L (135-145); TOTAL PROTEIN 6.4 G/DL (6.4-8.2); eGFR > 90 ML/MIN
[2022-12-05 14:00] VITALS: BP 103/57
--- NOTE | 2022-12-05 14:00 | NUR ---
Pt's 02 remained at 95% on RA during transfer to and from bed - shower chair, shower, and recliner. No SOB noted. Pt was a 2 person assist - tolerated activity well.
--- NOTE | 2022-12-05 15:18 | NUR ---
i reviewed aircraft structural repairer physical assessment of patient
[2022-12-05 18:00] VITALS: BP 111/64
[2022-12-05 22:00] VITALS: BP 99/52
[2022-12-06] MEDS: heparin, porcine 5000 units/ml vial SQ SCH ×2 (00:06→08:11)
--- NOTE | 2022-12-06 01:31 | NUR ---
Reviewed and agree with NETWORK CONSULTANT assessment.
[2022-12-06 02:00] VITALS: BP 107/55
[2022-12-06 06:00] VITALS: BP 110/59
--- NOTE | 2022-12-06 06:15 | NUR ---
Patient in room ORTHO 4006. I have received report from Patrick STOKES and had the opportunity to ask questions and assume patient care.
--- NOTE | 2022-12-06 06:28 | NUR ---
Problems reprioritized. Patient report given, questions answered & plan of care reviewed with Ashley ROMO & Ml ROMO.
[2022-12-06] MEDS: piperacillin/tazo 4.5gm/100ml 100 ML IV SCH ×2 (07:06)
[2022-12-06] MEDS: dexamethasone 4mg/ml inj IV SCH (07:07)
[2022-12-06] MEDS: DALFAMPRIDINE PO SCH (08:00)
[2022-12-06] MEDS: K and/or MAG REPLACEMENT MC SCH (08:00)
[2022-12-06] MEDS: baclofen 10mg tablet PO PRN (08:12)
[2022-12-06] MEDS: atenolol 25mg tablet PO SCH (08:12)
[2022-12-06] MEDS: linezolid 600mg tablet PO SCH (08:12)
[2022-12-06] MEDS: ipratropium/albuterol 3ml nebule NEB SCH (08:28)
[2022-12-06 10:00] VITALS: BP 94/49
[2022-12-06] MEDS ORDERED: DEXA6TAB PO (11:30)
--- NOTE | 2022-12-06 12:17 | NUR ---
F/u: Pt possibly to discharge and remains on zyvox per EMR; written low-tyramine diet ed w/ RD contact information placed in pt chart. Addendum: 12/06/22 at [address] Amended: Links added.
--- NOTE | 2022-12-06 12:45 | NUR ---
Patient discharged home with in personal vehicle, belongings sent with. IV discontinued, tip of cannula in tact. Pt alert and appropriate at time of discharge, tele removed.
--- NOTE | 2022-12-06 12:50 | NUR ---
Silvestre documentation and medication administration reviewed/assisted. I agree with all documentation and medication administrations done by Ml jaeegr.
== END 2022-12-06 12:45 | disposition home or self-care (01) | DRG 193 ==
LOC: ER 18:40 → ED HOLD 11-25 05:44 → ORTHO 4S 11-25 16:20
PROVIDERS: ADMIT Internal Medicine; ATTEND Internal Medicine
PROC: B32T1ZZ Computerized Tomography (CT Scan) of Left Pulmonary Artery using Low Osmolar Contrast (ICD-10-PCS; principal; 2022-11-28)
PROC: B32S1ZZ Computerized Tomography (CT Scan) of Right Pulmonary Artery using Low Osmolar Contrast (ICD-10-PCS; 2022-11-28)
DX: J18.9 Pneumonia, unspecified organism (principal); J96.01 Acute respiratory failure with hypoxia; D84.821 Immunodeficiency due to drugs; E87.6 Hypokalemia; R33.9 Retention of urine, unspecified; G35 Multiple sclerosis; Z20.822 Contact with and (suspected) exposure to COVID-19; Z79.60 Long term (current) use of unspecified immunomodulators and immunosuppressants; Z87.440 Personal history of urinary (tract) infections; Z90.710 Acquired absence of both cervix and uterus; Z99.3 Dependence on wheelchair; Z99.81 Dependence on supplemental oxygen; Z88.0 Allergy status to penicillin
CPT/HCPCS: 36415; 36600; 71045; 71260; 71275; 80048; 80053; 80305; 81001; 82784; 82803; 83605; 83615; 83735; 83880; 84132; 84145; 84443; 84484; 85007; 85018; 85025; 85379; 85651; 86140; 86703; 87040; 87081; 87449; 87502; 87503; 87811; 87899; 93005; 94640; 94664; 94668; 94760; 97110; 97161; 97530; 97535; 99285; A4353; A4615; G0378; J0456; J0696; J1100; J1644; J1940; J2543; J3490; J7030; Q9967